=== PATIENT | female | born 1950 | race Caucasian/White ===

== ENCOUNTER 2017-02-05 13:45 | Observation (INO) | payer MEDICARE ==
[~2017-02-05] VITALS: Ht 162.6 cm; Wt 82.2 kg
[2017-02-05] MEDS ORDERED: UMEC1DIS INH (14:11)
[2017-02-05] MEDS ORDERED: ATOR20TA9 PO (14:11)
[2017-02-05] MEDS ORDERED: TOFA11TA PO (14:11)
[2017-02-05] MEDS ORDERED: VENL75CA PO (14:13)
[2017-02-05] MEDS ORDERED: TRAM50TA2 PO (14:13)
[2017-02-05 14:43] LABS: BLOOD UREA NITROGEN 23 mg/dL (7-18)
[2017-02-05 14:44] LABS: HEMATOCRIT 34.8 % (34.6-47.8); HEMOGLOBIN 10.9 g/dL (11.7-16.4)
[2017-02-05 14:47] LABS: IS PT STATUS REG ER OR PRE ER? YES
[2017-02-05 15:04] LABS: DIFF TOTAL CELLS COUNTED 200 CELL DIFF; VERIFY COUNTS? YES
[2017-02-05 15:05] LABS: ANISOCYTOSIS 1+; MICROCYTOSIS 1+; OVALOCYTES 1+
[2017-02-05 16:21] VITALS: BP 174/89
[2017-02-05] MEDS ORDERED: ENOXAPARIN 40 MG/0.4 ML SQ SCH (19:00)
[2017-02-05] MEDS ORDERED: ENALAPRILAT 1.25 MG/ML, 2ML IVPush PRN (19:00)
[2017-02-05] MEDS ORDERED: DOCUSATE 100 MG CAPSULE PO PRN (19:00)
[2017-02-05] MEDS ORDERED: morphine SULFATE 10 MG/ML, 1ML IVPush PRN (19:00)
[2017-02-05] MEDS ORDERED: BISACODYL 10 MG SUPP PR PRN (19:00)
[2017-02-05] MEDS ORDERED: ACETAMINOPHEN 325 MG TABLET PO PRN (19:00)
[2017-02-05] MEDS ORDERED: POLYETHYLENE GLYCOL 17 GM PACKET PO PRN (19:00)
[2017-02-05] MEDS ORDERED: NITROGLYCERIN 0.4 MG BOTTLE (25 TABS) SL PRN (19:00)
[2017-02-05] MEDS ORDERED: LABETALOL 5MG/ML, 20ML IVPush PRN (19:00)
[2017-02-05 19:03] VITALS: BP 115/68
[2017-02-05 19:36] LABS: TOTAL IRON BINDING CAPACITY 340 mcg/dL (250-450)
[2017-02-05 19:37] LABS: IS PT STATUS REG ER OR PRE ER? NO
[2017-02-05] MEDS ORDERED: ATORVASTATIN 20 MG TABLET PO SCH (21:00)
[2017-02-05 21:38] LABS: PATH.CAST-FLAG NOT PRESENT; SPERM-FLAG NOT PRESENT; SRC-FLAG NOT PRESENT; XTAL-FLAG NOT PRESENT; YLC-FLAG NOT PRESENT
[2017-02-06 01:07] VITALS: BP 118/70
[2017-02-06 01:25] LABS: IS PT STATUS REG ER OR PRE ER? NO
[2017-02-06] MEDS ORDERED: ASPIRIN 325 MG TABLET EC PO SCH (06:00)
[2017-02-06 06:06] LABS: BLOOD UREA NITROGEN 22 mg/dL (7-18)
[2017-02-06 06:18] LABS: ASPARTATE AMINO TRANSFERASE 15 U/L (15-37); HEMOGLOBIN 11.2 g/dL (11.7-16.4); WHITE BLOOD COUNT 9.9 x10^3/uL (3.4-10)
[2017-02-06 07:02] LABS: ANISOCYTOSIS 1+; HYPOCHROMIA 1+
[2017-02-06 07:03] LABS: MICROCYTOSIS 2+
[2017-02-06 07:04] LABS: OVALOCYTES 1+; POIKILOCYTOSIS 1+; POLYCHROMASIA 1+
[2017-02-06] MEDS ORDERED: REGADENOSON 0.4 MG/5 ML SYRINGE ONE (07:36)
[2017-02-06] MEDS ORDERED: TOFACITINIB CITRATE HOMEMEDPO SCH (09:00)
[2017-02-06] MEDS ORDERED: [UNRECOGNIZED DRUG - OTHER] INH SCH (09:00)
[2017-02-06] MEDS ORDERED: VENLAFAXINE 75 MG CAP ER PO SCH (09:00)
[2017-02-06 13:51] VITALS: BP 145/69
== END 2017-02-06 18:26 | disposition home or self-care (01) ==
LOC: ED 15:20 → EDIP 15:21 → INTOOBSV 15:21 → ED 15:23 → 5SO 16:07 → EDIP 16:07 → 5SO 16:10
PROVIDERS: ADMIT Hospitalist; ATTEND Hospitalist
DX: R06.00 Dyspnea, unspecified (principal); D64.9 Anemia, unspecified; I11.0 Hypertensive heart disease with heart failure; I50.30 Unspecified diastolic (congestive) heart failure; J44.9 Chronic obstructive pulmonary disease, unspecified; M06.9 Rheumatoid arthritis, unspecified; E78.5 Hyperlipidemia, unspecified; Z82.5 Family history of asthma and other chronic lower respiratory diseases; Z82.61 Family history of arthritis; Z87.891 Personal history of nicotine dependence
CPT/HCPCS: 36415; 71010; 78452; 80048; 80053; 81001; 82040; 83540; 83550; 83735; 83880; 84100; 84443; 84484; 85025; 87086; 93005; 93017; 93306; 96372; 99285; A9502; C9898; G0378; J1650; J2785

== ENCOUNTER → 2017-03-04 | Outpatient (CLI) | payer MEDICARE ==
[~2017-03-04] MED LIST: ATOR20TA9 PO; TOFA11TA PO; TRAM50TA2 PO; UMEC1DIS INH; VENL75CA PO
== END | disposition home or self-care (01) ==
LOC: CFH 09:18
PROVIDERS: ATTEND Nurse Practitioner Family
DX: R91.8 Other nonspecific abnormal finding of lung field (principal)
CPT/HCPCS: 71250

== ENCOUNTER → 2018-06-30 | Outpatient (CLI) | payer MEDICARE ==
[~2018-06-30] MED LIST changes: +ATOR20TA37 PO; -ATOR20TA9 PO
== END | disposition home or self-care (01) ==
LOC: EDSTATUS 04-08 14:15 → CFH 09:47
PROVIDERS: ATTEND Internal Medicine Critical Care Medicine
DX: Z12.2 Encounter for screening for malignant neoplasm of respiratory organs (principal); Z87.891 Personal history of nicotine dependence
CPT/HCPCS: G0297

== ENCOUNTER → 2020-01-03 | Outpatient (CLI) | payer MEDICARE | END | disposition home or self-care (01) | LOC: CFH 09:54 | PROVIDERS: ATTEND Internal Medicine | DX: R91.8 Other nonspecific abnormal finding of lung field (principal); J98.4 Other disorders of lung; R06.00 Dyspnea, unspecified; M05.79 Rheumatoid arthritis with rheumatoid factor of multiple sites without organ or systems involvement | CPT/HCPCS: 71250 ==